=== PATIENT | male | born 1985 | race African-American/Black ===

== ENCOUNTER 2017-03-08 14:40 | Emergency (ER) | payer SELFPAY ==
[~2017-03-08] VITALS: Ht 180.3 cm; Wt 72.6 kg
[2017-03-08 14:45] VITALS: BP 114/65
[2017-03-08] MEDS ORDERED: MUPI15CR TP (14:58)
[2017-03-08] MEDS ORDERED: SULF1TAB24 PO (14:58)
--- NOTE | 2017-03-08 14:58 | PHYS DOC ---
Past Medical History Past Medical History: No Pertinent History Past Surgical History: No Surgical History Alcohol Use: None Drug Use: None Adult General Chief Complaint Chief Complaint: ABSCESS HPI HPI Patient is a 31 year old male presents to the ED with c/o facial abscess for one week. Denies fever, headache Review of Systems Review of Systems Constitutional: Denies fever or chills [] Eyes: Denies change in visual acuity, redness, or eye pain [] HENT: Denies nasal congestion or sore throat [] Respiratory: Denies cough or shortness of breath [] Cardiovascular: No additional information not addressed in HPI [] GI: Denies abdominal pain, nausea, vomiting, bloody stools or diarrhea [] : Denies dysuria or hematuria [] Musculoskeletal: Denies back pain or joint pain [] Integument: Abscess Neurologic: Denies headache, focal weakness or sensory changes [] Endocrine: Denies polyuria or polydipsia [] Allergies Allergies Allergies Coded Allergies Type Severity Reaction Last Updated Verified iodine Allergy Intermediate Swelling 05/06/14 No Physical Exam Physical Exam Constitutional: Well developed, well nourished, no acute distress, non-toxic appearance. [] HENT: Forehead, left side, 1 cm area that is excoriated, erythematous base. Mild swelling. No discharge. Nontender to palpate. No fluctuance. Eyes: PERRLA, EOMI without pain, conjunctiva normal, no discharge. [] Neck: Normal range of motion, no tenderness, supple, no lymphadenopathy Cardiovascular:Heart rate regular rhythm, no murmur [] Lungs & Thorax: Bilateral breath sounds clear to auscultation [] EKG EKG [] Radiology/Procedures Radiology/Procedures [] Course & Med Decision Making Course & Med Decision Making Pertinent Labs and Imaging studies reviewed. (See chart for details) [] Dragon Disclaimer Dragon Disclaimer This electronic medical record was generated, in whole or in part, using a voice recognition dictation system. Departure Departure Impression: Primary Impression: Abscess Disposition: 01 HOME, SELF-CARE Condition: STABLE Referrals: NON,STAFF (PCP) Patient Instructions: Abscess Scripts Mupirocin Calcium (BACTROBAN CREAM) 15 Gm Cream..g. 1 FABIO TP TID, #30 GM Prov: AUBREY CALVO APRN 03/08/17 Sulfamethoxazole/Trimethoprim (BACTRIM DS TABLET) 1 Each Tablet 1 TAB PO BID, #20 TAB Prov: AUBREY CALVO APRN 03/08/17 AUBREY CALVO APRN Mar 08, 2017 14:58
== END 2017-03-08 15:07 | disposition home or self-care (01) ==
LOC: ER 14:40
DX: L02.01 Cutaneous abscess of face (principal); Z91.041 Radiographic dye allergy status
CPT/HCPCS: 99283

== ENCOUNTER 2019-03-07 00:23 | Emergency (ER) | payer SELFPAY ==
[~2019-03-07] VITALS: Ht 177.8 cm; Wt 72.6 kg
[~2019-03-07 00:23] MED LIST: MUPI15CR TP; SULF1TAB24 PO
[2019-03-07 00:25] VITALS: BP 131/76
--- NOTE | 2019-03-07 01:14 | PHYS DOC ---
Past Medical History Past Medical History: No Pertinent History Past Surgical History: No Surgical History Alcohol Use: None Drug Use: Marijuana Adult General Chief Complaint Chief Complaint: SORE THROAT HPI HPI Patient is a 33-year-old male with a history of esophageal thrush. He's been taking nystatin. He started again a few days ago. Simultaneous to the start of his nystatin he developed a small amount of bright red blood in his stool. He denies any dizziness. He states this is not a lot of blood. He denies any abdominal pain. He denies fever chills or sweats.[] Review of Systems Review of Systems Constitutional: Denies fever or chills [] Eyes: Denies change in visual acuity, redness, or eye pain [] HENT: Complain of mild sore throat[] Respiratory: Denies cough or shortness of breath [] Cardiovascular: No additional information not addressed in HPI [] GI: Per history of present illness[] : Denies dysuria or hematuria [] Musculoskeletal: Denies back pain or joint pain [] Integument: Denies rash or skin lesions [] Neurologic: Denies headache, focal weakness or sensory changes [] Endocrine: Denies polyuria or polydipsia [] All other systems were reviewed and found to be within normal limits, except as documented in this note. Allergies Allergies Allergies Coded Allergies Type Severity Reaction Last Updated Verified iodine Allergy Intermediate Swelling 05/06/14 No Physical Exam Physical Exam Constitutional: Well developed, well nourished, no acute distress, non-toxic appearance. [] HENT: Normocephalic, atraumatic, bilateral external ears normal, oropharynx moist, no oral exudates, nose normal, do not appreciate any thrush. [] Eyes: PERRLA, EOMI, conjunctiva normal, no discharge. [] Neck: Normal range of motion, no tenderness, supple, no stridor. [] Cardiovascular:Heart rate regular rhythm, no murmur [] Lungs & Thorax: Bilateral breath sounds clear to auscultation [] Abdomen: Bowel sounds normal, soft, no tenderness, no masses, no pulsatile masses. [] Skin: Warm, dry, no erythema, no rash. [] Back: No tenderness, no CVA tenderness. [] Extremities: No tenderness, no cyanosis, no clubbing, ROM intact, no edema. [] Neurologic: Alert and oriented X 3, normal motor function, normal sensory function, no focal deficits noted. [] Psychologic: Affect normal, judgement normal, mood normal. [] Current Patient Data Vital Signs Vital Signs Date Time Temp Pulse Resp B/P (MAP) Pulse Ox O2 Delivery O2 Flow Rate FiO2 03/07/19 00:25 98.7 87 16 131/76 (94) 95 Room Air 98.7 EKG EKG [] Radiology/Procedures Radiology/Procedures [] Course & Med Decision Making Course & Med Decision Making Pertinent Labs and Imaging studies reviewed. (See chart for details) [] Dragon Disclaimer Dragon Disclaimer This electronic medical record was generated, in whole or in part, using a voice recognition dictation system. Departure Departure Impression: Primary Impression: Rectal bleeding Disposition: HOME, SELF-CARE Condition: STABLE Referrals: NO PCP (PCP) Patient Instructions: Rectal Bleeding, [id number] Additional Instructions: Continue nystatin as previously prescribed. Return to the emergency department with any new or concerning symptoms JYOTI ALEXIS DO Mar 07, 2019 01:14
== END 2019-03-07 01:15 | disposition home or self-care (01) ==
LOC: ER 00:23
DX: K62.5 Hemorrhage of anus and rectum (principal); J02.9 Acute pharyngitis, unspecified; Z91.041 Radiographic dye allergy status
CPT/HCPCS: 99281

== ENCOUNTER 2019-04-01 23:07 | Emergency (ER) | payer SELFPAY ==
[~2019-04-01] VITALS: Ht 180.3 cm; Wt 72.6 kg
[2019-04-01 23:09] VITALS: BP 137/79
[2019-04-01] MEDS ORDERED: FLUC200T4 PO (23:28)
--- NOTE | 2019-04-01 23:37 | PHYS DOC ---
Past Medical History Past Medical History: No Pertinent History Past Surgical History: No Surgical History Alcohol Use: None Drug Use: Marijuana Adult General Chief Complaint Chief Complaint: DENTAL PROBLEM HPI HPI Patient is a 33 year old male who presents with recurrent thrush this is been a problem on and off for months now He's been taking nystatin for 2 weeks which really not getting any better now his gums are getting very sore he feels itchy all over Review of Systems Review of Systems Constitutional: Denies fever or chills [] Eyes: Denies change in visual acuity, redness, or eye pain [] HENT: Denies nasal congestion or sore throat [] Respiratory: Denies cough or shortness of breath [] Cardiovascular: No additional information not addressed in HPI [] GI: Denies abdominal pain, nausea, vomiting, bloody stools or diarrhea [] : Denies dysuria or hematuria [] Musculoskeletal: Denies back pain or joint pain [] Integument: Denies rash or skin lesions [] Neurologic: Denies headache, focal weakness or sensory changes [] Endocrine: Denies polyuria or polydipsia [] All other systems were reviewed and found to be within normal limits, except as documented in this note. Allergies Allergies Allergies Coded Allergies Type Severity Reaction Last Updated Verified iodine Allergy Intermediate Swelling 05/06/14 No Physical Exam Physical Exam Constitutional: Well developed, well nourished, no acute distress, non-toxic appearance. [] HENT: Normocephalic, atraumatic, bilateral external ears normal, oropharynx evidence of thrush in the posterior oral pharynx mild in nature no swelling airway patent gums appear possibly mildly inflamed Neck: Normal range of motion, no tenderness, supple, no stridor. [] Cardiovascular:Heart rate regular rhythm, no murmur [] Pulmonary: Normal respiratory effort no increased work of breathing no obvious chest wall trauma Skin: Warm, dry, no erythema, no rash. [] Back: No tenderness, no CVA tenderness. [] Extremities: No tenderness, no cyanosis, no clubbing, ROM intact, no edema. [] Neurologic: Alert and oriented X 3, normal motor function, normal sensory function, no focal deficits noted. [] Psychologic: Affect normal, judgement normal, mood normal. [] EKG EKG [] Radiology/Procedures Radiology/Procedures [] Course & Med Decision Making Course & Med Decision Making Pertinent Labs and Imaging studies reviewed. (See chart for details) []Apparent persistent thrush despite topical use try fluconazole recommended follow-up with primary care should this rash does not improve as expected Sue Disclaimer Draglali Disclaimer This electronic medical record was generated, in whole or in part, using a voice recognition dictation system. Departure Departure Impression: Primary Impression: Thrush Disposition: HOME, SELF-CARE Condition: STABLE Referrals: NO PCP (PCP) Patient Instructions: Thrush, Adult Scripts Fluconazole (FLUCONAZOLE) 200 Mg Tablet 1 TAB PO DAILY, #14 TAB Prov: LUIS ANGEL JACOBS MD 04/01/19 LUIS ANGEL JACOBS MD Apr 01, 2019 23:37
== END 2019-04-01 23:46 | disposition home or self-care (01) ==
LOC: ER 23:07
DX: B37.0 Candidal stomatitis (principal); Z88.8 Allergy status to other drugs, medicaments and biological substances
CPT/HCPCS: 99283